=== PATIENT | female | born 1955 | race Two or more races ===

== ENCOUNTER 2017-09-14 14:06 | Inpatient (IN) | payer MEDICAID ==
[~2017-09-14] VITALS: Ht 149.9 cm; Wt 73.9 kg
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
--- NOTE | 2017-09-14 14:26 | NUR ---
PATIENT MEDICATED PER MD ORDERS. PRODUCT COORDINATOR AT BEDSIDE FOR BLOOD DRAW.
[2017-09-14] MEDS ORDERED: IV NS 0.9% 1,000 ML BAG IV ONE (14:30)
[2017-09-14 14:31] LABS: BASOPHILS % (AUTO) 0.3 % (0.0-2.0); EOSINOPHILS # (AUTO) 0.1 /CMM (0.0-0.7); EOSINOPHILS % (AUTO) 0.8 % (0.0-6.0); HEMATOCRIT 45 % (33-45); HEMOGLOBIN 15.4 g/dL (11.5-14.8); LYMPHOCYTES # (AUTO) 1.7 /CMM (0.8-4.8); LYMPHOCYTES % (AUTO) 13.2 % (20.0-44.0); MEAN CORPUSCULAR HEMOGLOBIN 28 PG (26.0-33.0); MEAN CORPUSCULAR HGB CONC 34 g/dl (31.0-36.0); MEAN CORPUSCULAR VOLUME 84 fL (82-100); MONOCYTES # (AUTO) 0.7 /CMM (0.1-1.30); MONOCYTES % (AUTO) 5.6 % (2.0-12.0); NEUTROPHILS # (AUTO) 10.7 /CMM (1.8-8.9); NEUTROPHILS % (AUTO) 80.1 % (43.0-81.0); PLATELET COUNT (AUTO) 251 /CMM (150-450); RDW COEFFICIENT OF VARIATION 11.9 (11.5-15.0); RED BLOOD CELL COUNT(AUTO) 5.42 MIL/uL (4.0-5.2); WHITE BLOOD COUNT (AUTO) 13.2 K/uL (4.3-11.0)
[2017-09-14 14:51] LABS: INR 0.91 (0.87-1.13); PROTHROMBIN TIME 9.5 SECS (9.5-12.7)
[2017-09-14 14:54] LABS: ALANINE AMINOTRANSFERASE 17 U/L (12-78); ALBUMIN 3.4 g/dL (3.4-5.0); ALKALINE PHOSPHATASE 130 U/L (46-116); ASPARTATE AMINOTRANSFERASE 18 U/L (15-37); BILIRUBIN,DIRECT 0.2 mg/dL (0.0-0.2); BILIRUBIN,TOTAL 1.5 mg/dL (0.2-1.0); CALCIUM, SERUM 9.9 mg/dL (8.5-10.1); CARBON DIOXIDE 27 mmol/L (21-32); CHLORIDE 94 mmol/L (98-107); CREATININE 1.8 mg/dL (0.6-1.3); POTASSIUM 4.1 mmol/L (3.5-5.1); SODIUM SERUM 130 mmol/L (136-145); TOTAL PROTEIN, SERUM 8.8 g/dL (6.4-8.2); UREA NITROGEN, BLOOD 25 mg/dL (7-18)
[2017-09-14 14:55] LABS: GLUCOSE 404 mg/dL (74-106)
[2017-09-14 14:56] LABS: TROPONIN I < 0.017 ng/mL (0.00-0.056)
[2017-09-14] MEDS ORDERED: ATOR40TA PO (14:57)
[2017-09-14] MEDS ORDERED: ISOS30TA6 PO (14:57)
[2017-09-14] MEDS ORDERED: METF500T4 PO (14:57)
[2017-09-14] MEDS ORDERED: AMLO10TA2 PO (14:57)
[2017-09-14] MEDS ORDERED: LISI40TA4 PO (14:57)
[2017-09-14] MEDS ORDERED: HYDR25TA4 PO (14:57)
[2017-09-14] MEDS ORDERED: ASPI-991 PO (14:57)
[2017-09-14] MEDS ORDERED: GLIM2TAB2 PO (14:57)
--- NOTE | 2017-09-14 16:35 | NUR ---
Bed 117-2
[2017-09-14 16:48] LABS: APPEARANCE,URINE CLEAR (CLEAR); BILIRUBIN,URINE NEGATIVE (NEGATIVE); BLOOD, URINE TRACE-INTA Ery/uL (NEGATIVE); COLOR,URINE YELLOW (YELLOW); KETONES,URINE NEGATIVE (NEGATIVE); LEUKOCYTE ESTERASE ,URINE NEGATIVE (NEGATIVE); NITRITE, URINE NEGATIVE (NEGATIVE); PH,URINE 6.5 (5.0-8.0); PROTEIN,URINE NEGATIVE (NEGATIVE); UGLUCOSE 1+ mg/dL (NEGATIVE); UROBILINOGEN,URINE 0.2 EU/dL (0.2)
[2017-09-14] MEDS ORDERED: MAG HYDROX/AL HYDROX/SIMETH 30 ML UDC PO PRN (17:00)
[2017-09-14] MEDS ORDERED: DEXTROSE 50%-WATER 50 ML DISP.SYRIN IV PRN (17:00)
[2017-09-14] MEDS ORDERED: MAGNESIUM HYDROXIDE 30 ML UDC PO PRN (17:00)
[2017-09-14] MEDS ORDERED: ZOLPIDEM TARTRATE 5 MG TABLET PO PRN (17:00)
[2017-09-14] MEDS ORDERED: METFORMIN 500 MG TABLET PO SCH (17:00)
[2017-09-14] MEDS ORDERED: ACETAMINOPHEN 325 MG TABLET PO PRN (17:00)
[2017-09-14] MEDS ORDERED: Z GUARD REMEDY 2 OZ OINT TP PRN (17:00)
[2017-09-14] MEDS ORDERED: ENOXAPARIN SODIUM 40 MG/0.4 ML DISP.SYRIN SQ SCH (17:00)
[2017-09-14] MEDS ORDERED: *INSULIN REGULAR(HUMULIN R)HUM 100 UNIT/ML VIAL SQ PRN (17:00)
--- NOTE | 2017-09-14 17:27 | NUR ---
PATIENT TRANSFERRED TO [facility] VIA ACLS PROTOCOL. RNSTANLEY TO PROVIDE NIKIA.
[2017-09-14 17:34] LABS: BACTERIA,URINE Few /HPF (None Seen); SQUAMOUS EPITHELIAL CELL,UR Few /HPF (None Seen); WBC,URINE 0-2 /HPF (0-3)
[2017-09-14 18:00] VITALS: BP 144/93
[2017-09-14] MEDS ORDERED: ENOXAPARIN SODIUM 30 MG/0.3 ML DISP.SYRIN SQ SCH (18:00)
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
[2017-09-14] MEDS: IV NS 0.9% 1,000 ML IV PRN (18:58)
[2017-09-14] MEDS: BLOOD SUGAR DIAGNOSTIC 1 EACH STRIP VI SCH ×2 (18:59→22:29)
[2017-09-14] MEDS: INSULIN REGULAR, HUMAN 100 UNIT/ML 3 ML VIAL SQ PRN ×2 (19:01→22:33)
[2017-09-14] MEDS: ONDANSETRON HCL/PF 4 MG/2 ML VIAL IVP PRN (19:12)
--- NOTE | 2017-09-14 19:50 | NUR ---
PEWTER FINISHER INITIAL NOTE PT RECEIVED IN NO ACUTE DISTRESS. NOTED FROM PREVIOUS SHIFT RN THAT SHE HAD VOMIT X2. ZOFRAN GIVEN X1 WELL NORCO X1. PT IS A/O X4 ABLE TO SPEAK PORTUGUESE BUT PRIMARY LANGUAGE IS CHINESE. ABLE TO MAKE NEEDS KNOWN AND WALK TO THE RESTROOM. ON TELE WITH SR 87. RAC 18 IS CLEAN DRY AND INTACT RUNNING IVF. SAFETY AND COMFORT MEASURES TO BE ENSURED DURING THE SHIFT. WILL CONTINUE TO MONITOR FOR ANY CHANGES.
[2017-09-14 20:00] VITALS: BP 177/98
[2017-09-14] MEDS: HYDROCODONE/APAP 5/325MG 1 EACH TABLET PO PRN (20:13)
[2017-09-15] VITALS: BP 165/93
[2017-09-15] MEDS: HYDROCODONE/APAP 5/325MG 1 EACH TABLET PO PRN ×2 (00:31→12:49)
[2017-09-15 04:00] VITALS: BP 142/84
--- NOTE | 2017-09-15 04:55 | NUR ---
RN X RAY NOTE PT HAS PIMPLE LIKE SWOLLEN AREA ON INSIDE OF LEFT NOSTRIL. PICTURES TAKEN AND PLACED IN CHART. WILL CONTINUE TO MONITOR.
[2017-09-15] MEDS: BLOOD SUGAR DIAGNOSTIC 1 EACH STRIP VI SCH ×3 (06:30→17:10)
[2017-09-15] MEDS: INSULIN REGULAR, HUMAN 100 UNIT/ML 3 ML VIAL SQ PRN ×3 (06:31→17:09)
--- NOTE | 2017-09-15 07:20 | NUR ---
RN NOTES PATIENT AWAKE, ALERT AND ORIENTED. ABLE TO MAKE NEEDS KNOWN. RESPIRATIONS EVEN AND UNLABORED, DENIES ANY PAIN OR DISCOMFORT AT THIS TIME. PATIENT CLEAN DRY AND COMFORTABLE,RAC IV SITE PATENT AND INTACT NO REDNESS OR INFILTRATION. CALL LIGHT WITHIN EASY REACH, WILL CONTINUE TO MONITOR
[2017-09-15 07:33] LABS: BASOPHILS % (AUTO) 0.2 % (0.0-2.0); EOSINOPHILS # (AUTO) 0.1 /CMM (0.0-0.7); EOSINOPHILS % (AUTO) 0.7 % (0.0-6.0); HEMATOCRIT 41 % (33-45); HEMOGLOBIN 13.9 g/dL (11.5-14.8); LYMPHOCYTES # (AUTO) 2.3 /CMM (0.8-4.8); LYMPHOCYTES % (AUTO) 21.6 % (20.0-44.0); MEAN CORPUSCULAR HEMOGLOBIN 29 PG (26.0-33.0); MEAN CORPUSCULAR HGB CONC 34 g/dl (31.0-36.0); MEAN CORPUSCULAR VOLUME 85 fL (82-100); MONOCYTES # (AUTO) 0.7 /CMM (0.1-1.30); MONOCYTES % (AUTO) 6.6 % (2.0-12.0); NEUTROPHILS # (AUTO) 7.6 /CMM (1.8-8.9); NEUTROPHILS % (AUTO) 70.9 % (43.0-81.0); PLATELET COUNT (AUTO) 249 /CMM (150-450); RDW COEFFICIENT OF VARIATION 12.7 (11.5-15.0); RED BLOOD CELL COUNT(AUTO) 4.83 MIL/uL (4.0-5.2); WHITE BLOOD COUNT (AUTO) 10.6 K/uL (4.3-11.0)
[2017-09-15 07:52] LABS: CALCIUM, SERUM 9.4 mg/dL (8.5-10.1); CREATININE 1.2 mg/dL (0.6-1.3); PHOSPHORUS 4.5 mg/dL (2.5-4.9); POTASSIUM 3.1 mmol/L (3.5-5.1)
[2017-09-15 07:53] LABS: THYROID STIMULATING HORMONE 1.268 uIU/mL (0.358-3.74)
[2017-09-15 08:00] VITALS: BP 200/90
[2017-09-15] MEDS ORDERED: GLIMEPIRIDE 1 MG TABLET PO SCH (09:00)
[2017-09-15] MEDS ORDERED: ATORVASTATIN 40 MG TABLET PO SCH (09:00)
[2017-09-15] MEDS ORDERED: ASPIRIN EC 81 MG TABLET.DR PO SCH (09:00)
[2017-09-15] MEDS ORDERED: HYDROCHLOROTHIAZIDE 25 MG TABLET PO SCH (09:00)
[2017-09-15] MEDS ORDERED: LISINOPRIL (10MG) 10 MG TABLET PO SCH (09:00)
[2017-09-15] MEDS ORDERED: ISOSORBIDE MONONITRATE (30MG) 30 MG TAB.SR.24H PO SCH (09:00)
[2017-09-15] MEDS ORDERED: AMLODIPINE BESYLATE 10 MG TABLET PO SCH (09:00)
[2017-09-15] MEDS: IV NS 0.9% 1,000 ML IV PRN (10:43)
--- NOTE | 2017-09-15 11:05 | NUR ---
RN NOTES PATIENT AWAKE, ALERT AND ORIENTED. ABLE TO MAKE NEEDS KNOWN. RESPIRATIONS EVEN AND UNLABORED, DENIES ANY PAIN OR DISCOMFORT AT THIS TIME. PATIENT CLEAN DRY AND COMFORTABLE,RAC IV SITE PATENT AND INTACT NO REDNESS OR INFILTRATION. CALL LIGHT WITHIN EASY REACH,ENDORSED TO NEXT NURSE FOR CONTINUITY OF CARE, BP ELEVATED MD AWARE, ALL BP MEDICATIONS GIVEN ORDERED TO CONTINUE TO MONITOR AND NOTIFY MD IF DOES NOT DECREASE TO WNL, ENDORSED TO NEXT SHIFT FOR CONTINUITY OF CARE
[2017-09-15 12:00] VITALS: BP 167/92
[2017-09-15] MEDS ORDERED: VALSARTAN 80 MG TABLET PO SCH (12:00)
[2017-09-15] MEDS ORDERED: POTASSIUM CHLORIDE 20 MEQ TAB.PRT.SR PO SCH (12:00)
[2017-09-15] MEDS: POTASSIUM CHLORIDE 20 MEQ TAB.PRT.SR PO SCH ×3 (12:49→15:11)
[2017-09-15] MEDS: ONDANSETRON HCL/PF 4 MG/2 ML VIAL IVP PRN ×2 (12:49→18:36)
--- NOTE | 2017-09-15 12:59 | NUR ---
telephonic nurse not us renal ay bedside , also c\o abdominal pain [place] po and Zofran for nausea given ,will f\u
--- NOTE | 2017-09-15 13:00 | NUR ---
television installer helper note pt eval done as ordered
--- NOTE | 2017-09-15 15:00 | NUR ---
EXTRACTIVE METALLURGIST NOTE ALL NEEDS ATTENDED, NO C]O PAIN OR DISCOMFORT AT THIS TIME , NOT IN ACUTE DISTRESS
[2017-09-15 16:00] VITALS: BP 154/75
--- NOTE | 2017-09-15 17:49 | NUR ---
PAINT TINTER NOTE PER DR FLEMING AND DR PATEL OK TO DISCHARGE HOME ORDER CARRIED OUT
--- NOTE | 2017-09-15 17:50 | NUR ---
AIR BAG BUILDER NOTE DISCHARGE INSTRUCTION GIVEN, UNDERSTOOD , ENPLANED HOW TO,TAKE HOME MEDS AND POSSIBLE SIDE EFFECTS ,BEACONING SIGHED , TELE REMOVED, HL REMOVED HAVING DINNER NOW, ABLE TO EAT SELF
--- NOTE | 2017-09-15 18:45 | NUR ---
MS RN NOTE FEELS NAUSEA ZOFRAN IVP GIVEN ORDERED
--- NOTE | 2017-09-15 18:47 | NUR ---
MS RN NOTE TAKEN TO LOBBY WITH STABLE CONDITION ON W\C WITH FAMILY
[2017-09-16] MEDS ORDERED: ATORVASTATIN 10 MG TABLET PO SCH (09:00)
== END 2017-09-15 18:45 | disposition home or self-care (01) | DRG 204 ==
LOC: ER 14:08 → TELE1 16:47
DX: R55 Syncope and collapse (principal); I10 Essential (primary) hypertension; E11.9 Type 2 diabetes mellitus without complications; I25.2 Old myocardial infarction; J45.909 Unspecified asthma, uncomplicated; E78.5 Hyperlipidemia, unspecified; I25.10 Atherosclerotic heart disease of native coronary artery without angina pectoris; E87.6 Hypokalemia; Z79.84 Long term (current) use of oral hypoglycemic drugs; Z79.82 Long term (current) use of aspirin; Z90.710 Acquired absence of both cervix and uterus
CPT/HCPCS: 36415; 71010-TC; 80048-TC; 80061-TC; 80076-TC; 81000-TC; 82962-TC; 83735-TC; 83880; 84100-TC; 84439-TC; 84443-TC; 84484-TC; 85025-TC; 85730-TC; 87081-TC; 93307-TC; A4606; J1650; J1815; J2405; J7030; Z7610